=== PATIENT | female | born 1970 | race Caucasian/White ===

== ENCOUNTER 2019-01-23 13:34 | Emergency (ER) | payer SELFPAY ==
--- NOTE | 2019-01-23 14:46 | ER Document Report ---
ED Medical Screen (RME) - General Chief Complaint: Flank Pain Stated Complaint: FLANK PAIN Time Seen by Provider: 01/23/19 14:45 Mode of Arrival: Ambulatory Information source: Patient Notes: 48-year-old female presented to ED for complaint of right flank pain since this morning. She states she is drank multiple bottles of water and with no relief from the pain. She does not have any bleeding frequency urgency just pain in the right flank. Patient denies any nausea or vomiting at this time. Patient denies any history of kidney stones. 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 I have greeted and performed a rapid initial assessment of this patient. A comprehensive ED assessment and evaluation of the patient, analysis of test results and completion of medical decision making process will be conducted by an additional ED providers. TRAVEL OUTSIDE OF THE [place] IN LAST 30 DAYS: No - Related Data Allergies/Adverse Reactions: bacitracin [From Neosporin ([id number])] Allergy (Verified 01/23/19 14:44) neomycin [From Neosporin ([id number]-[id number])] Allergy (Verified 01/23/19 14:44) polymyxin B [From Neosporin ([id number])] Allergy (Verified 01/23/19 14:44) Past Medical History - Social History Frequency of alcohol use: None Drug Abuse: None Renal/ Medical History: Denies: Hx Peritoneal Dialysis Physical Exam - Vital signs Vitals: Temp Pulse Resp BP Pulse Ox 99.3 F 91 18 176/93 H 98 01/23/19 14:00 01/23/19 14:00 01/23/19 14:00 01/23/19 14:00 01/23/19 14:00 Course - Vital Signs Vital signs: Temp Pulse Resp BP Pulse Ox 99.3 F 91 18 176/93 H 98 01/23/19 14:00 01/23/19 14:00 01/23/19 14:00 01/23/19 14:00 01/23/19 14:00
[2019-01-23] MEDS ORDERED: KETOROLAC TROMETHAMINE INJ/PF 30 MG/1 ML SDV IV ONE (14:47)
[2019-01-23 15:07] LABS: ABSOLUTE EOSINOPHILS # (AUTO) 0.1 10^3/uL (0.0-0.6); ABSOLUTE LYMPHOCYTES (AUTO) 3.1 10^3/uL (0.5-4.7); ABSOLUTE MONOCYTES (AUTO) 0.6 10^3/uL (0.1-1.4); ABSOLUTE NEUT (AUTO) 6.2 10^3/uL (1.7-8.2); BASOPHILS % (AUTO) 0.2 % (0-2); EOSINOPHILS % (AUTO) 1.3 % (0-6); HEMATOCRIT 40.3 % (36.0-47.0); HEMOGLOBIN 13.7 g/dL (12.0-15.5); LYMPHOCYTES % (AUTO) 30.7 % (13-45); MEAN CORPUSCULAR HEMOGLOBIN 29.6 pg (27.0-33.4); MEAN CORPUSCULAR HGB CONC 34.1 g/dL (32.0-36.0); MEAN CORPUSCULAR VOLUME 87 fl (80-97); PLATELET COUNT 358 10^3/uL (150-450); RED BLOOD COUNT 4.65 10^6/uL (3.72-5.28); RED CELL DISTRIBUTION WIDTH 14.3 % (11.5-14.0); SEGMENTED NEUTROPHILS % (AUTO) 61.8 % (42-78); TOTAL CELLS COUNTED % (AUTO) 100 %
[2019-01-23 15:22] LABS: APPEARANCE,URINE SLIGHTLY-CLOUDY; BILIRUBIN,URINE NEGATIVE (NEGATIVE); COLOR,URINE STRAW; GLUCOSE, URINE NEGATIVE (NEGATIVE); KETONES,URINE NEGATIVE (NEGATIVE); LEUKOCYTE ESTERASE,URINE NEGATIVE (NEGATIVE); NITRITE,URINE NEGATIVE (NEGATIVE); PROTEIN,URINE NEGATIVE (NEGATIVE); URINE SPECIFIC GRAVITY 1.004; UROBILINOGEN,URINE NEGATIVE mg/dL (<2.0)
[2019-01-23 15:27] LABS: ALANINE AMINOTRANSFERASE 93 U/L (9-52); ALKALINE PHOSPHATASE 77 U/L (38-126); ANION GAP 12 (5-19); ASPARTATE AMINO TRANSFERASE 80 U/L (14-36); BILIRUBIN,DIRECT 0.3 mg/dL (0.0-0.4); BILIRUBIN,TOTAL 0.3 mg/dL (0.2-1.3); BLOOD UREA NITROGEN 9 mg/dL (7-20); CALCIUM 10.2 mg/dL (8.4-10.2); CARBON DIOXIDE 26 mmol/L (22-30); CHLORIDE 103 mmol/L (98-107); GLUCOSE 89 mg/dL (75-110); LIPASE 95.7 U/L (23-300); POTASSIUM 4.4 mmol/L (3.6-5.0); SODIUM 140.9 mmol/L (137-145); TOTAL PROTEIN 8.1 g/dL (6.3-8.2)
--- NOTE | 2019-01-23 18:23 | RADIOLOGY REPORT (SQ) ---
EXAM DESCRIPTION: U/S RETROPERITON (RENAL/AORTA) COMPLETED DATE/TIME: 01/23/2019 5:51 pm REASON FOR STUDY: Right flank pain COMPARISON: None. TECHNIQUE: Dynamic and static grayscale images acquired of the kidneys and bladder and recorded on P ACS. Additional selected color Doppler and spectral images recorded. LIMITATIONS: None. FINDINGS: RIGHT KIDNEY: Normal size, 12.1 cm. Normal echogenicity. No suspicious masses. No stone s. No hydronephrosis. LEFT KIDNEY: Normal size, 11 cm. Normal echogenicity. No suspicious masses. No stones. No hydron ephrosis. BLADDER: No masses. OTHER FINDINGS: No other significant finding. IMPRESSION: NORMAL RENAL AND BLADDER ULTRASOUND. TECHNICAL DOCUMENTATION: JOB ID: [id number] [employer]- All Rights Reserved Reading location - IP/workstation name: [email or web address]
[2019-01-23] MEDS ORDERED: HYDROCODONE/ACETAMINOPHEN 5-325 MG (6 TAB/ER DISP) PO PRN (19:07)
--- NOTE | 2019-01-23 19:12 | ER Document Report ---
ED General - General Chief Complaint: Flank Pain Stated Complaint: FLANK PAIN Time Seen by Provider: 01/23/19 14:45 Mode of Arrival: Ambulatory Information source: Patient, [facility] Records Notes: 48-year-old female with history of remote breast cancer, previous kidney stones presents with complaint of right-sided flank pain that started this morning. Patient describes the pain as sharp, intermittent and worse with certain movements like bending forward. She states pain is relieved when bending to the left side. Denies any fever, nausea, vomiting, dysuria, hematuria. Patient did CHANTELL the area without relief. She does have a history of chronic back pain and sees a chiropractor every 2 weeks. She states this is different from her normal back pain. TRAVEL OUTSIDE OF THE [place] IN LAST 30 DAYS: No - HPI Onset: This morning Onset/Duration: Sudden, Intermittent Quality of pain: Sharp Severity: Moderate Pain Level: 2 Associated symptoms: Body/muscle aches. denies: Chest pain, Diarrhea, Fever, Headache, Nausea, Vomiting, Shortness of breath Exacerbated by: Movement Relieved by: Other - Stretching Similar symptoms previously: Yes Recently seen / treated by doctor: No - Related Data Allergies/Adverse Reactions: bacitracin [From Neosporin ([id number])] Allergy (Verified 01/23/19 14:44) neomycin [From Neosporin ([id number])] Allergy (Verified 01/23/19 14:44) polymyxin B [From Neosporin ([id number]-jee-vyany)] Allergy (Verified 01/23/19 14:44) Past Medical History - General Information source: Patient - Social History Smoking Status: Former Smoker Frequency of alcohol use: None Drug Abuse: None Lives with: Spouse/Significant other Family History: Reviewed & Not Pertinent Patient has suicidal ideation: No Patient has homicidal ideation: No Renal/ Medical History: Denies: Hx Peritoneal Dialysis Review of Systems - Review of Systems Notes: REVIEW OF SYSTEMS: CONSTITUTIONAL : Denies fever, chills, or sweats. Denies recent illness. Denies weight loss, recent hospitalizations. EENT: Denies visual changes, eye pain. Denies sore throat, oral lesions, difficulty swallowing. CARDIOVASCULAR: Denies chest pain. Denies palpitations. Denies lower extremity edema. RESPIRATORY: Denies cough. Denies shortness of breath, wheezing. GASTROINTESTINAL: Denies abdominal pain or distention. Denies nausea, vomiting, or diarrhea. Denies blood in vomitus, stools, or per rectum. Denies black, tarry stools. Denies constipation. GENITOURINARY: Denies difficulty urinating, painful urination, frequency, blood in urine, or vaginal discharge. MUSCULOSKELETAL: Denies neck pain or stiffness. Denies joint pain or swelling. SKIN: Denies rash, lesions or sores. HEMATOLOGIC : Denies easy bruising or bleeding. LYMPHATIC: Denies swollen glands. NEUROLOGICAL: Denies confusion or altered mental status. Denies loss of consciousness. Denies dizziness or lightheadedness. Denies headache. Denies weakness or paralysis. Denies problems difficulty with ambulation, slurred speech. Denies sensory loss, numbness, or tingling. Denies seizures. PSYCHIATRIC: Denies anxiety or stress. Denies depression, suicidal ideation, or homicidal ideation. Denies visual or auditory hallucinations. Physical Exam - Vital signs Vitals: Temp Pulse Resp BP Pulse Ox 99.3 F 91 18 176/93 H 98 01/23/19 14:00 01/23/19 14:00 01/23/19 14:00 01/23/19 14:00 01/23/19 14:00 - Notes Notes: PHYSICAL EXAMINATION: GENERAL: Well-appearing, well-nourished and in no acute distress. HEAD: Atraumatic, normocephalic. EYES: Pupils equal round and reactive to light, extraocular movements intact, conjunctiva are normal. ENT: Nares patent, oropharynx clear without exudates. Moist mucous membranes. NECK: Normal range of motion, supple without lymphadenopathy LUNGS: Breath sounds clear to auscultation bilaterally and equal. No wheezes rales or rhonchi. HEART: Regular rate and rhythm without murmurs ABDOMEN: Soft, nontender, nondistended abdomen. No guarding, no rebound. No masses appreciated. Tenderness with palpation over the right flank. Female : deferred Musculoskeletal: Normal range of motion, no pitting or edema. No cyanosis. NEUROLOGICAL: Cranial nerves grossly intact. Normal speech, normal gait. Normal sensory, motor exams PSYCH: Normal mood, normal affect. SKIN: Warm, Dry, normal turgor, no rashes or lesions noted. Course - Re-evaluation Re-evalutation: 05/14/19 19:09 Laboratory 01/23/19 01/23/19 01/23/19 13:54 13:54 13:54 WBC 10.0 RBC 4.65 Hgb 13.7 Hct 40.3 MCV 87 MCH 29.6 MCHC 34.1 RDW 14.3 H Plt Count 358 Seg Neutrophils % 61.8 Lymphocytes % 30.7 Monocytes % 6.0 Eosinophils % 1.3 Basophils % 0.2 Absolute Neutrophils 6.2 Absolute Lymphocytes 3.1 Absolute Monocytes 0.6 Absolute Eosinophils 0.1 Absolute Basophils 0.0 Sodium 140.9 Potassium 4.4 Chloride 103 Carbon Dioxide 26 Anion Gap 12 BUN 9 Creatinine 0.62 Est GFR ( Amer) > 60 Est GFR (Non-Af Amer) > 60 Glucose 89 Calcium 10.2 Total Bilirubin 0.3 Direct Bilirubin 0.3 Neonat Total Bilirubin Not Reportable Neonat Direct Bilirubin Not Reportable Neonat Indirect Bili Not Reportable AST 80 H ALT 93 H Alkaline Phosphatase 77 Total Protein 8.1 Albumin 5.0 Lipase 95.7 Urine Color STRAW Urine Appearance SLIGHTLY-CLOUDY Urine pH 7.0 Ur Specific [place] 1.004 Urine Protein NEGATIVE Urine Glucose (UA) NEGATIVE Urine Ketones NEGATIVE Urine Blood NEGATIVE Urine Nitrite NEGATIVE Urine Bilirubin NEGATIVE Urine Urobilinogen NEGATIVE Ur Leukocyte Esterase NEGATIVE Urine WBC (Auto) 2 Urine RBC (Auto) 0 Squamous Epi Cells Auto 5 Urine Ascorbic Acid NEGATIVE Renal Ultrasound 01/23/19 14:46 IMPRESSION: NORMAL RENAL AND BLADDER ULTRASOUND. Temp Pulse Resp BP Pulse Ox 99.3 F 91 18 176/93 H 98 01/23/19 14:00 01/23/19 14:00 01/23/19 14:00 01/23/19 14:00 01/23/19 14:00 48-year-old female with no reported past medical history presents with complaint of right-sided flank pain that occurred this morning. She describes it as s harp, intermittent. Vital signs reviewed and patient is afebrile, hypertensive but not hypoxic or tachycardic. Patient does not appear toxic or dehydrated. She is in no acute distress. She did receive Toradol with minimal relief. CBC, CMP, urinalysis and renal ultrasound are unremarkable. Exam consistent with musculoskeletal back pain. Patient did receive [place] for home. Patient was evaluated and treated as appropriate for the patient's presenting symptoms and complaint, with consideration of any critical or life threatening conditions that may be associated with their obtained history and exam as noted above. All results were discussed with patient . Patient provided the opportunity to ask questions, and express concerns. Patient was educated on treatments based on their presumed diagnosis as noted above. At this time we will discharge the patient with return precautions and follow-up recommendations. Verbal discharge instructions given a the bedside. Medication warnings reviewed. Patient is in agreement with this plan and has verbalized understanding of return precautions. After careful consideration I feel that that patient can be safely discharged from the emergency department, they were advised to followup with a primary care physician in 2-3 days. Dictation on this chart was performed using voice recognition software and may result in unintended grammatical, spelling, syntax or errors. - Vital Signs Vital signs: Temp Pulse Resp BP Pulse Ox 99.3 F 91 18 176/93 H 98 01/23/19 14:00 01/23/19 14:00 01/23/19 14:00 01/23/19 14:00 01/23/19 14:00 - Laboratory Result Diagrams: 01/23/19 13:54 01/23/19 13:54 Laboratory results interpreted by me: 01/23/19 01/23/19 13:54 13:54 RDW 14.3 H AST 80 H ALT 93 H - Diagnostic Test Radiology reviewed: Image reviewed, Reports reviewed Discharge - Discharge Clinical Impression: Flank pain, Elevated blood pressure reading Condition: Good Disposition: HOME, SELF-CARE Instructions: Chronic Back Pain ([facility]), Flank Pain ([facility]), Low Back Pain ([facility]) Additional Instructions: Regarding Blood Pressure: Your blood pressure was noted to be greater than 120/80 at least once in the emergency room today. It is recommended that you follow-up with her primary care physician in the next week for repeat blood pressure check. The Centers for Medicare and Medicaid Services has specific recommendations regarding a person's blood pressure. There are several lifestyle modifications that are recommended in order to help lower your blood pressure. These include: Quitting smoking if you smoke. Reducing the amount of sodium in your diet. Getting regular exercise Limiting alcohol to no more than 2 drinks a day for men and one drink a day for women. Eating a healthy diet, including more fruits and vegetables, low fat dairy products, less saturated and total fat. Losing weight if you are overweight. FOLLOW-UP: Call your doctor's office and let them know your blood pressure was elevated and you were advised to get your blood pressure checked in the above time-line. If you are unable to get into your doctor's office in this time period, you can follow-up with a new physician (I have left the numbers below for a few primary care doctors affiliated with this select specialty hospital - [facility]) or return to the ER. PRIMARY CARE PHYSICIANS: Dr. Rehan Mccoy [address], [place] [address] [phone] Dr Perera Address: [address] , [place] [address] Dr Whyte Address: [address] , [place] [address] Follow up with your [id number] hours for further care or return to the ED IMMEDIATELY if symptoms worsen or you have any concerns. If you cannot afford to follow up with your primary care physician a list of low cost clinics have been provided at the end of your discharge papers as well. Most prescribed medications have multiple side effects. The safest thing to do is when filling your prescription speak to your pharmacist regarding possible interactions with your normal home medications and over the counter medications such as Ibuprofen, Tylenol, Benadryl. If you experience any symptoms that cause you discomfort or concern you should discontinue the medication immediately and return to the emergency room or call your primary care physician. Forms: Elevated Blood Pressure
[2019-01-23 19:35] VITALS: BP 164/90
== END 2019-01-23 19:45 | disposition home or self-care (01) ==
LOC: ER 13:34
DX: R03.0 Elevated blood-pressure reading, without diagnosis of hypertension (principal); G89.29 Other chronic pain; R10.9 Unspecified abdominal pain; M79.10 Myalgia, unspecified site; Z88.3 Allergy status to other anti-infective agents; Z87.442 Personal history of urinary calculi
CPT/HCPCS: 99284; 96374; 36415; 87086; 83690; 85025; 80053; 81001; 76770; J1885